=== PATIENT | male | born 1970 | race Native Hawaiian/Other Pacific Islander ===

== ENCOUNTER 2016-11-10 18:02 | Inpatient (IN) | payer OTHER ==
[~2016-11-10] VITALS: Ht 175.3 cm; Wt 90.0 kg
[~2016-11-10 18:02] MED LIST: BENA20TA2 PO; BENAZEPRIL20 MG PO; D35000 UNIT OR; DEXL60CA4 PO; DILTIAZEM240 M1 PO; DIPHEN25 MG PO; DIPHENHYDRAM25 MG PO; ENTERIC COATED325 MG PO; FISH OIL1 C10 PO; GEMF600T17 PO; GEMFIBROZIL PO; GLIP10TA55 PO; GLIP10TA66 PO; HAIR/SKIN/NAILS1 TAB PO; HUMALOG MI75 MG/25 K SC; HUMULIN 70/30 K1 INJ SC; HUMULIN 70/30 SC; INSU100I2 SC; LABETALOL200 MG PO; LABETALOL300 MG PO; METO50TA27 PO; METOPROLOL50 MG PO; MONTELUKAST SOD10 MG PO; NEURONTIN 100M100 MG PO; NIACIN ER1000 MG PO; NIASPAN750 MG PO; NIFE30TA PO; NITRO-DUR0.4 MG/HR TD; NITROSTAT0.3 MG SL; OMEPRAZOLE20 M1 PO; PIOG30TA PO; SINGULAIR10 MG PO; TAMS0.4C PO; TIZA4TAB5 PO; TRAM50TA PO; WELCHOL625 MG PO
[2016-11-10 20:00] VITALS: BP 168/101; TEMP 97.6
[2016-11-10 20:46] LABS: PLATELET COUNT 402 K/uL (142-355)
[2016-11-10 21:04] LABS: POTASSIUM 3.7 mmol/L (3.6-5.2)
[2016-11-10 21:20] VITALS: BP 190/99; TEMP 98.6; Ht 175.3 cm; Wt 90.0 kg
[2016-11-11] VITALS: BP 163/101; TEMP 99.1
[2016-11-11 02:30] VITALS: BP 100/56; TEMP 99
[2016-11-11 08:23] VITALS: BP 127/69; TEMP 97.6
[2016-11-11 12:00] VITALS: BP 107/63; TEMP 97.7
[2016-11-11 13:56] LABS: PLATELET COUNT 328 K/uL (142-355)
[2016-11-11 14:03] LABS: POTASSIUM 3.9 mmol/L (3.6-5.2)
[2016-11-11 16:00] VITALS: BP 102/66; TEMP 98.2
[2016-11-11 21:23] VITALS: BP 96/56; TEMP 97.9
[2016-11-12 00:11] VITALS: BP 108/55; TEMP 97.8
[2016-11-12 04:00] VITALS: BP 105/60; TEMP 97.9
[2016-11-12 05:27] LABS: PLATELET COUNT 296 K/uL (142-355)
[2016-11-12 05:53] LABS: POTASSIUM 3.4 mmol/L (3.6-5.2)
[2016-11-12 08:09] VITALS: BP 145/84; TEMP 97.8
[2016-11-12 12:03] VITALS: BP 111/62; TEMP 97.6
[2016-11-12 16:00] VITALS: BP 119/72; TEMP 97.8
== END 2016-11-12 18:40 | disposition home or self-care (01) | DRG 153 ==
LOC: MED/SURG 18:02
PROVIDERS: ADMIT Family Medicine
DX: J11.1 Influenza due to unidentified influenza virus with other respiratory manifestations (principal); J44.1 Chronic obstructive pulmonary disease with (acute) exacerbation; E86.0 Dehydration; E11.9 Type 2 diabetes mellitus without complications; I10 Essential (primary) hypertension; R00.0 Tachycardia, unspecified
CPT/HCPCS: 36415; 80053; 82948; 83735; 85027; 87040; 93005; 94640; 94664; 94760; 96360; 96361; 96367; 96372; 96374; J1815; J1885

== ENCOUNTER 2016-11-25 15:36 | Outpatient (CLI) | payer OTHER ==
[~2016-11-25] VITALS: Ht 175.3 cm; Wt 88.5 kg
[2016-11-25 15:45] VITALS: BP 133/78; TEMP 97.8
[2016-11-25 17:17] VITALS: BP 145/81; TEMP 97.8
== END 2016-11-25 19:36 | disposition home or self-care (01) ==
LOC: INF 15:36
DX: E86.0 Dehydration (principal)
CPT/HCPCS: 96360

== ENCOUNTER 2016-12-30 14:24 | Outpatient (CLI) | payer OTHER | END 2016-12-30 19:20 | disposition home or self-care (01) | LOC: RAD 14:24 | DX: M25.461 Effusion, right knee (principal) ==

== ENCOUNTER 2017-01-08 10:47 | Outpatient (CLI) | payer OTHER ==
[2017-01-08 11:21] LABS: PLATELET COUNT 264 K/uL (142-355)
[2017-01-08 11:52] LABS: POTASSIUM 3.7 mmol/L (3.6-5.2)
== END 2017-01-08 19:48 | disposition home or self-care (01) ==
LOC: LABW 10:47
PROVIDERS: Internal Medicine Nephrology
DX: N18.3 Chronic kidney disease, stage 3 (moderate) (principal); N25.81 Secondary hyperparathyroidism of renal origin; D63.1 Anemia in chronic kidney disease; R79.89 Other specified abnormal findings of blood chemistry; E78.00 Pure hypercholesterolemia, unspecified
CPT/HCPCS: 36415; 80053; 80061; 81000; 82306; 82570; 82607; 82728; 82747; 83540; 83550; 83970; 84100; 84155; 84436; 84443; 85027

== ENCOUNTER 2017-02-03 17:22 | Outpatient (CLI) | payer OTHER ==
[2017-02-03 18:22] LABS: PLATELET COUNT 321 K/uL (142-355)
[2017-02-03 18:32] LABS: POTASSIUM 3.9 mmol/L (3.6-5.2)
== END 2017-02-03 19:21 | disposition home or self-care (01) ==
LOC: INF 17:22
PROVIDERS: Family Medicine
DX: R10.84 Generalized abdominal pain (principal)
CPT/HCPCS: 80053; 85027; 96360; 96361; Q9963

== ENCOUNTER 2017-03-16 07:45 | Day surgery (SDC) | payer OTHER ==
[2017-03-09 09:20] LABS: PLATELET COUNT 278 K/uL (142-355)
[2017-03-09 10:20] LABS: POTASSIUM 3.8 mmol/L (3.6-5.2)
== END 2017-03-16 10:56 | disposition home or self-care (01) ==
LOC: OR 07:45
PROVIDERS: Student in an Organized Health Care Education/Training Program
PROC: 0DBH8ZZ Excision of Cecum, Via Natural or Artificial Opening Endoscopic (ICD-10-PCS; principal; 2017-03-16)
PROC: 0DBL8ZZ Excision of Transverse Colon, Via Natural or Artificial Opening Endoscopic (ICD-10-PCS; 2017-03-16)
DX: D12.0 Benign neoplasm of cecum (principal); D12.3 Benign neoplasm of transverse colon; K62.5 Hemorrhage of anus and rectum; K62.89 Other specified diseases of anus and rectum; Z12.11 Encounter for screening for malignant neoplasm of colon; K59.09 Other constipation; Z86.010 Personal history of colon polyps
CPT/HCPCS: 36415; 80053; 85027; 85610; J2001; J2704

== ENCOUNTER 2017-03-29 14:43 | Observation (INO) | payer OTHER ==
[~2017-03-29] VITALS: Ht 175.3 cm; Wt 86.2 kg
[2017-03-29 15:56] LABS: PLATELET COUNT 305 K/uL (142-355)
[2017-03-29 16:02] LABS: POTASSIUM 3.5 mmol/L (3.6-5.2)
[2017-03-29 16:53] VITALS: BP 154/89; TEMP 98.6; Ht 175.3 cm; Wt 86.2 kg
[2017-03-29] MEDS ORDERED: FE TABS325 MG PO (18:05)
[2017-03-29] MEDS ORDERED: LIPITOR10 MG PO (18:05)
[2017-03-29] MEDS ORDERED: ALLO100T22 PO (18:06)
[2017-03-29] MEDS ORDERED: BYSTOLIC5 MG PO (18:06)
[2017-03-29] MEDS ORDERED: ALTACE5 MG PO (18:06)
[2017-03-29 20:00] VITALS: BP 161/86; TEMP 98.5
[2017-03-30] VITALS: BP 164/88; TEMP 97.6
[2017-03-30 04:00] VITALS: BP 117/91; TEMP 98.6
[2017-03-30 08:00] VITALS: BP 176/94; TEMP 97.6
[2017-03-30 08:51] LABS: PLATELET COUNT 314 K/uL (142-355)
[2017-03-30 09:10] LABS: POTASSIUM 3.5 mmol/L (3.6-5.2)
[2017-03-30 12:00] VITALS: BP 189/97; TEMP 98
[2017-03-30 16:00] VITALS: BP 186/92; TEMP 97.8
--- NOTE | 2017-03-30 19:00 | NUR ---
IV CATH REMOVED
--- NOTE | 2017-03-30 19:15 | NUR ---
DISHCARGE INSTRUCTIONS GIVEN TO MOTHER
--- NOTE | 2017-03-30 19:17 | NUR ---
FAMILY WAS TOLD THAT THERE WAS A TORNADO WARNING IN EFFECT, DAD SAID THAT THEY WERE GOING TO [facility]ANVE ANYWAY
== END 2017-03-30 19:19 | disposition home or self-care (01) ==
LOC: MED/SURG 14:43
PROVIDERS: ADMIT Family Medicine
DX: K85.90 Acute pancreatitis without necrosis or infection, unspecified (principal); R10.84 Generalized abdominal pain; E86.0 Dehydration; I10 Essential (primary) hypertension; E13.42 Other specified diabetes mellitus with diabetic polyneuropathy; R11.10 Vomiting, unspecified
CPT/HCPCS: 80053; 81000; 82150; 82948; 83605; 83690; 83735; 85027; 96360; 96366; 96367; 96374; 96375; 99220; G0378; G0379; J2405

== ENCOUNTER 2017-07-30 12:27 | Outpatient (CLI) | payer OTHER ==
[~2017-07-30 12:27] MED LIST changes: +ALLO100T22 PO; +ALTACE5 MG PO; +BYSTOLIC5 MG PO; +FE TABS325 MG PO; +LEVEMIR FL100 UNIT/M SC; +LIPITOR10 MG PO
== END 2017-07-30 19:17 | disposition home or self-care (01) ==
LOC: INF 12:27
DX: E86.0 Dehydration (principal)
CPT/HCPCS: 96360; 96361

== ENCOUNTER 2017-08-12 16:55 | Outpatient (CLI) | payer OTHER | END 2017-08-12 19:28 | disposition home or self-care (01) | LOC: INF 16:55 | DX: E86.0 Dehydration (principal) | CPT/HCPCS: 96360; 96361 ==

== ENCOUNTER 2017-08-24 20:20 | Observation (INO) | payer OTHER ==
[~2017-08-24] VITALS: Ht 175.3 cm; Wt 90.0 kg
[2017-08-24] VITALS (7 sets, daily range): BP systolic 166–189; BP diastolic 86–102; TEMP 98.4–98.6; Ht 175.3 cm; Wt 90.0 kg
[2017-08-24 21:34] LABS: PLATELET COUNT 212 K/uL (142-355)
[2017-08-24 21:54] LABS: POTASSIUM 4.2 mmol/L (3.6-5.2)
[2017-08-24 22:34] LABS: PARTIAL THROMBOPLASTIN TIME 23.2 SECONDS (24.5-33.6)
[2017-08-25] VITALS (18 sets, daily range): BP systolic 135–175; BP diastolic 71–107; TEMP 97.8–99
[2017-08-25] MEDS ORDERED: CALCITRIOL0.25 MCG OR (01:39)
[2017-08-25] MEDS ORDERED: NIACIN ER1000 MG PO (01:41)
[2017-08-25] MEDS ORDERED: GABA300C2 PO (01:42)
[2017-08-25] MEDS ORDERED: GLIP10TA55 PO (01:43)
[2017-08-25] MEDS ORDERED: METOCLOPRAM5 MG OR (01:43)
[2017-08-25] MEDS ORDERED: NITROSTAT0.4 MG SL (01:45)
[2017-08-25] MEDS ORDERED: HUMULIN 70/30 K1 INJ SC (01:46)
[2017-08-25] MEDS ORDERED: INSUINJP SC (01:48)
[2017-08-25 05:32] LABS: PLATELET COUNT 213 K/uL (142-355)
[2017-08-25 05:43] LABS: POTASSIUM 3.5 mmol/L (3.6-5.2)
[2017-08-26] VITALS: BP 150/85; TEMP 97.9
[2017-08-26 04:00] VITALS: BP 123/66; TEMP 98.3
[2017-08-26 05:23] LABS: PLATELET COUNT 203 K/uL (142-355)
[2017-08-26 05:24] LABS: POTASSIUM 3.7 mmol/L (3.6-5.2)
[2017-08-26 08:00] VITALS: BP 131/71; TEMP 98
[2017-08-26 12:00] VITALS: BP 138/78; TEMP 97.7
== END 2017-08-26 14:25 | disposition home or self-care (01) ==
LOC: ICU 20:20 → MED/SURG 08-25 17:45
PROVIDERS: ADMIT Family Medicine
DX: R07.89 Other chest pain (principal); I10 Essential (primary) hypertension; E11.9 Type 2 diabetes mellitus without complications; E86.0 Dehydration; R10.84 Generalized abdominal pain
CPT/HCPCS: 36415; 80053; 82150; 82550; 82948; 83690; 83735; 84484; 85027; 85610; 85730; 87040; 93005; 94760; 96365; 96366; 96372; 99220; G0378; G0379; J1650; J1815; J3475

== ENCOUNTER 2017-11-15 10:03 | Outpatient (CLI) | payer OTHER ==
[~2017-11-15 10:03] MED LIST changes: +CALCITRIOL0.25 MCG OR; +GABA300C2 PO; +INSUINJP SC; +METOCLOPRAM5 MG OR; +NITROSTAT0.4 MG SL
[2017-11-15 10:32] LABS: PLATELET COUNT 272 K/uL (142-355)
[2017-11-15 11:02] LABS: POTASSIUM 4.3 mmol/L (3.6-5.2)
== END 2017-11-15 20:28 | disposition home or self-care (01) ==
LOC: LABW 10:03
PROVIDERS: Internal Medicine Hematology & Oncology
DX: D47.2 Monoclonal gammopathy (principal); R79.89 Other specified abnormal findings of blood chemistry; D64.89 Other specified anemias
CPT/HCPCS: 36415; 80053; 82728; 82784; 83883; 84165; 85027

== ENCOUNTER 2018-01-12 10:19 | Outpatient (CLI) | payer OTHER ==
[2018-01-12 10:42] LABS: PLATELET COUNT 372 K/uL (142-355)
[2018-01-12 11:40] LABS: POTASSIUM 4.2 mmol/L (3.6-5.2)
== END 2018-01-12 21:47 | disposition home or self-care (01) ==
LOC: LABW 10:19
PROVIDERS: Internal Medicine Nephrology
DX: N18.3 Chronic kidney disease, stage 3 (moderate) (principal); N25.81 Secondary hyperparathyroidism of renal origin; D63.1 Anemia in chronic kidney disease; E78.00 Pure hypercholesterolemia, unspecified
CPT/HCPCS: 36415; 80053; 80061; 81000; 82306; 82570; 82607; 82728; 82747; 83540; 83970; 84100; 84155; 84436; 84443; 85027

== ENCOUNTER 2018-03-11 10:25 | Outpatient (CLI) | payer OTHER ==
[2018-03-11 11:23] LABS: POTASSIUM 4.4 mmol/L (3.6-5.2)
== END 2018-03-11 22:14 | disposition home or self-care (01) ==
LOC: LABW 10:25
PROVIDERS: Internal Medicine Endocrinology, Diabetes & Metabolism
DX: E11.9 Type 2 diabetes mellitus without complications (principal); I10 Essential (primary) hypertension; E78.00 Pure hypercholesterolemia, unspecified
CPT/HCPCS: 36415; 80053; 80061; 82043; 82570; 84439; 84443; 84681

== ENCOUNTER 2018-05-09 10:26 | Outpatient (CLI) | payer OTHER ==
[~2018-05-09 10:26] MED LIST changes: +COATED ASPIRIN325 MG PO; +DIPH25CA90 PO; +WELCHOL625 MG OR
[2018-05-09 12:30] LABS: PLATELET COUNT 327 K/uL (142-355)
[2018-05-09 12:56] LABS: POTASSIUM 4.3 mmol/L (3.6-5.2)
== END 2018-05-09 19:45 | disposition home or self-care (01) ==
LOC: LABW 10:26
PROVIDERS: Internal Medicine Nephrology
DX: N18.3 Chronic kidney disease, stage 3 (moderate) (principal); D63.1 Anemia in chronic kidney disease; N25.81 Secondary hyperparathyroidism of renal origin; E11.9 Type 2 diabetes mellitus without complications
CPT/HCPCS: 36415; 80053; 80061; 81000; 82306; 82570; 82607; 82728; 82747; 83540; 83970; 84100; 84155; 84436; 84443; 85027

== ENCOUNTER 2018-07-19 10:22 | Outpatient (CLI) | payer OTHER ==
[2018-07-19 11:00] LABS: PLATELET COUNT 238 K/uL (142-355)
[2018-07-19 11:57] LABS: POTASSIUM 4.2 mmol/L (3.6-5.2)
== END 2018-07-19 22:22 | disposition home or self-care (01) ==
LOC: LABW 10:22
PROVIDERS: Internal Medicine Medical Oncology
DX: D64.9 Anemia, unspecified (principal); D47.2 Monoclonal gammopathy
CPT/HCPCS: 36415; 80053; 82607; 82728; 82746; 82784; 83540; 83550; 83883; 85027

== ENCOUNTER 2018-08-04 14:07 | Outpatient (CLI) | payer OTHER | END 2018-08-04 20:57 | disposition home or self-care (01) | LOC: RAD 14:07 | DX: K59.00 Constipation, unspecified (principal) ==

== ENCOUNTER 2018-08-22 14:22 | Observation (INO) | payer OTHER ==
[~2018-08-22] VITALS: Ht 175.3 cm; Wt 84.0 kg
[2018-08-22 15:57] VITALS: BP 145/85; TEMP 98.2; Ht 175.3 cm; Wt 84.0 kg
[2018-08-22 16:48] LABS: PLATELET COUNT 309 K/uL (142-355)
[2018-08-22] MEDS ORDERED: ULORIC40 MG PO (16:52)
[2018-08-22] MEDS ORDERED: ALTACE5 MG PO (16:53)
[2018-08-22 17:01] LABS: POTASSIUM 4.8 mmol/L (3.6-5.2); SODIUM 136 mmol/L (136-145)
[2018-08-22 20:29] VITALS: BP 148/92; TEMP 98
[2018-08-23] VITALS: BP 170/98; TEMP 97.9
[2018-08-23 04:15] VITALS: BP 176/98; TEMP 98.2
[2018-08-23 08:00] VITALS: BP 174/102; TEMP 97.8
[2018-08-23 10:31] LABS: POTASSIUM 4.3 mmol/L (3.6-5.2); SODIUM 135 mmol/L (136-145)
[2018-08-23 12:00] VITALS: BP 171/98; TEMP 98.1
[2018-08-23] MEDS ORDERED: AMLODIPINE BESYLATE PO (15:24)
[2018-08-23 16:23] VITALS: BP 123/84; TEMP 98
== END 2018-08-23 16:41 | disposition home or self-care (01) ==
LOC: MED/SURG 14:22
PROVIDERS: ADMIT Family Medicine
DX: I16.0 Hypertensive urgency (principal); I12.9 Hypertensive chronic kidney disease with stage 1 through stage 4 chronic kidney disease, or unspecified chronic kidney disease; E11.22 Type 2 diabetes mellitus with diabetic chronic kidney disease; N18.4 Chronic kidney disease, stage 4 (severe); Z79.4 Long term (current) use of insulin
CPT/HCPCS: 36600; 80048; 80053; 81000; 82550; 82805; 82948; 83735; 84484; 85027; 87040; 87077; 87185; 87186; 87205; 93005; 96365; 96366; 99220; G0378; G0379; J1815

== ENCOUNTER 2018-09-13 09:28 | Outpatient (CLI) | payer OTHER ==
[~2018-09-13 09:28] MED LIST changes: +AMLODIPINE BESYLATE PO; +ULORIC40 MG PO
[2018-09-13 09:59] LABS: PLATELET COUNT 241 K/uL (142-355)
[2018-09-13 10:23] LABS: POTASSIUM 4.3 mmol/L (3.6-5.2)
== END 2018-09-13 22:15 | disposition home or self-care (01) ==
LOC: LABW 09:28
PROVIDERS: Internal Medicine Nephrology
DX: N18.3 Chronic kidney disease, stage 3 (moderate) (principal); N25.81 Secondary hyperparathyroidism of renal origin; D63.1 Anemia in chronic kidney disease; Z79.899 Other long term (current) drug therapy
CPT/HCPCS: 36415; 80053; 80061; 81000; 82570; 82607; 82652; 82728; 82747; 83540; 83550; 83970; 84100; 84155; 84436; 84443; 85027

== ENCOUNTER 2018-10-07 14:43 | Observation (INO) | payer OTHER ==
[~2018-10-07] VITALS: Ht 175.3 cm; Wt 90.0 kg
[2018-10-07 18:15] LABS: PLATELET COUNT 322 K/uL (142-355)
[2018-10-07 18:21] VITALS: BP 180/100; TEMP 98.3; Ht 175.3 cm; Wt 90.0 kg
[2018-10-07 18:27] LABS: POTASSIUM 4.7 mmol/L (3.6-5.2); SODIUM 134 mmol/L (136-145)
[2018-10-07 18:41] LABS: PARTIAL THROMBOPLASTIN TIME 25.7 SECONDS (24.5-33.6)
[2018-10-07 20:00] VITALS: BP 173/103; TEMP 97.7
[2018-10-08] VITALS: BP 169/96; TEMP 98.2
[2018-10-08 04:00] VITALS: BP 165/91; TEMP 98.4
[2018-10-08 08:05] VITALS: BP 180/106; TEMP 98.4
[2018-10-08 12:06] VITALS: BP 177/98; TEMP 98.7
[2018-10-08 16:00] VITALS: BP 184/98; TEMP 98.9
[2018-10-08 20:00] VITALS: BP 162/90; TEMP 98.6
[2018-10-09] VITALS: BP 154/87; TEMP 98.9
[2018-10-09 04:00] VITALS: BP 145/80; TEMP 98.9
[2018-10-09 06:55] LABS: PLATELET COUNT 251 K/uL (142-355)
[2018-10-09 07:13] LABS: POTASSIUM 3.8 mmol/L (3.6-5.2)
[2018-10-09 08:04] VITALS: BP 152/77; TEMP 97.6
[2018-10-09 12:03] VITALS: BP 148/74; TEMP 98.2
[2018-10-09 16:03] VITALS: BP 117/67; TEMP 98.4
== END 2018-10-09 18:35 | disposition home or self-care (01) ==
LOC: MED/SURG 14:43
PROVIDERS: ADMIT Family Medicine
DX: E13.65 Other specified diabetes mellitus with hyperglycemia (principal); E86.0 Dehydration; R05 Cough; Z23 Encounter for immunization; R00.0 Tachycardia, unspecified; R55 Syncope and collapse
CPT/HCPCS: 36415; 80053; 82550; 82948; 83735; 83880; 84100; 84484; 85027; 85610; 85730; 93005; 96365; 96366; 96372; 99220; G0378; G0379; J1650; J1815

== ENCOUNTER 2018-11-10 10:00 | Outpatient (CLI) | payer OTHER ==
[2018-11-10 10:34] LABS: PLATELET COUNT 331 K/uL (142-355)
[2018-11-10 11:10] LABS: POTASSIUM 4.9 mmol/L (3.6-5.2)
== END 2018-11-10 22:31 | disposition home or self-care (01) ==
LOC: LABW 10:00
PROVIDERS: Internal Medicine Nephrology
DX: N18.3 Chronic kidney disease, stage 3 (moderate) (principal); N25.81 Secondary hyperparathyroidism of renal origin; D63.1 Anemia in chronic kidney disease; R94.6 Abnormal results of thyroid function studies
CPT/HCPCS: 36415; 80053; 80061; 81000; 82570; 82607; 82652; 82728; 82747; 83540; 83550; 83970; 84100; 84155; 84436; 84443; 85027

== ENCOUNTER 2018-11-18 14:20 | Outpatient (CLI) | payer OTHER | END 2018-11-18 19:17 | disposition home or self-care (01) | LOC: INF 14:20 | DX: E86.0 Dehydration (principal) | CPT/HCPCS: 96360; 96361 ==

== ENCOUNTER 2019-01-16 09:56 | Outpatient (CLI) | payer OTHER ==
[2019-01-16 10:43] LABS: POTASSIUM 4.6 mmol/L (3.6-5.2)
[2019-01-16 10:47] LABS: PLATELET COUNT 308 K/uL (142-355)
== END 2019-01-16 19:46 | disposition home or self-care (01) ==
LOC: LABW 09:56
PROVIDERS: Nurse Practitioner Family
DX: D64.9 Anemia, unspecified (principal); D47.2 Monoclonal gammopathy
CPT/HCPCS: 36415; 80053; 82728; 82784; 83540; 83550; 83883; 84165; 85027

== ENCOUNTER 2019-02-07 11:05 | Outpatient (CLI) | payer OTHER ==
[2019-02-07 11:28] LABS: PLATELET COUNT 250 K/uL (142-355)
[2019-02-07 13:09] LABS: POTASSIUM 4.9 mmol/L (3.6-5.2)
== END 2019-02-07 21:07 | disposition home or self-care (01) ==
LOC: LABW 11:05
PROVIDERS: Internal Medicine Nephrology
DX: N18.9 Chronic kidney disease, unspecified (principal); D63.1 Anemia in chronic kidney disease; I10 Essential (primary) hypertension; E11.9 Type 2 diabetes mellitus without complications; R94.6 Abnormal results of thyroid function studies; K85.90 Acute pancreatitis without necrosis or infection, unspecified; K21.9 Gastro-esophageal reflux disease without esophagitis; M10.9 Gout, unspecified
CPT/HCPCS: 36415; 80053; 82306; 82607; 82728; 82746; 83540; 83550; 83970; 84100; 85027

== ENCOUNTER 2019-04-12 11:47 | Outpatient (CLI) | payer OTHER ==
[2019-04-12 12:16] LABS: PLATELET COUNT 228 K/uL (142-355)
[2019-04-12 12:45] LABS: POTASSIUM 5.1 mmol/L (3.6-5.2)
== END 2019-04-12 23:34 | disposition home or self-care (01) ==
LOC: LABW 11:47
PROVIDERS: Internal Medicine Nephrology
DX: E11.9 Type 2 diabetes mellitus without complications (principal); D63.1 Anemia in chronic kidney disease; I10 Essential (primary) hypertension; R94.6 Abnormal results of thyroid function studies; K21.9 Gastro-esophageal reflux disease without esophagitis; M10.9 Gout, unspecified; K85.80 Other acute pancreatitis without necrosis or infection
CPT/HCPCS: 36415; 80053; 82306; 82570; 82607; 82728; 82746; 83540; 83550; 83970; 84100; 84155; 85027

== ENCOUNTER 2019-05-01 10:04 | Outpatient (CLI) | payer OTHER ==
[2019-05-01 10:39] LABS: PLATELET COUNT 321 K/uL (142-355)
[2019-05-01 11:00] LABS: POTASSIUM 4.5 mmol/L (3.6-5.2)
== END 2019-05-01 23:22 | disposition home or self-care (01) ==
LOC: LABW 10:04
PROVIDERS: Internal Medicine Nephrology
DX: I12.9 Hypertensive chronic kidney disease with stage 1 through stage 4 chronic kidney disease, or unspecified chronic kidney disease (principal); N18.3 Chronic kidney disease, stage 3 (moderate); D63.1 Anemia in chronic kidney disease; E11.9 Type 2 diabetes mellitus without complications; R94.6 Abnormal results of thyroid function studies; K85.80 Other acute pancreatitis without necrosis or infection; K21.9 Gastro-esophageal reflux disease without esophagitis; M10.9 Gout, unspecified
CPT/HCPCS: 36415; 80053; 84100; 84439; 84443; 85027

== ENCOUNTER 2019-05-08 00:59 | Outpatient (CLI) | payer OTHER ==
[2019-05-08] MEDS ORDERED: VITAMIN D50000 UNIT PO (02:10)
[2019-05-08] MEDS ORDERED: METO50TA27 PO (02:10)
[2019-05-08] MEDS ORDERED: FERROUS SULF325 M1 PO (02:13)
[2019-05-08] MEDS ORDERED: LEVO0.0529 PO (02:13)
[2019-05-08] MEDS ORDERED: FOLIC ACI1 PO (02:14)
== END 2019-05-08 01:03 | disposition short-term general hospital (02) ==
LOC: AMB 00:59
DX: R25.8 Other abnormal involuntary movements (principal); M79.605 Pain in left leg; M79.604 Pain in right leg; R69 Illness, unspecified
CPT/HCPCS: A0425; A0427

== ENCOUNTER 2019-05-08 01:08 | Emergency (ER) | payer OTHER ==
[~2019-05-08] VITALS: Ht 175.3 cm; Wt 93.0 kg
[2019-05-08] MEDS ORDERED: VITAMIN D50000 UNIT PO (02:10)
[2019-05-08] MEDS ORDERED: METO50TA27 PO (02:10)
[2019-05-08 02:12] LABS: PLATELET COUNT 324 K/uL (142-355)
[2019-05-08] MEDS ORDERED: LEVO0.0529 PO (02:13)
[2019-05-08] MEDS ORDERED: FERROUS SULF325 M1 PO (02:13)
[2019-05-08] MEDS ORDERED: FOLIC ACI1 PO (02:14)
[2019-05-08 02:34] LABS: POTASSIUM 5.3 mmol/L (3.6-5.2)
[2019-05-08 04:40] LABS: PARTIAL THROMBOPLASTIN TIME 23.6 SECONDS (24.5-33.6)
[2019-05-08 05:27] VITALS: BP 174/81; TEMP 98
== END 2019-05-08 05:32 | disposition short-term general hospital (02) ==
LOC: ED 01:08
PROVIDERS: Family Medicine
DX: N28.9 Disorder of kidney and ureter, unspecified (principal); R79.89 Other specified abnormal findings of blood chemistry; R00.0 Tachycardia, unspecified
CPT/HCPCS: 36415; 80053; 81000; 85027; 85379; 85610; 85730; 93005; 99284

== ENCOUNTER 2019-05-08 05:30 | Outpatient (CLI) | payer OTHER ==
[~2019-05-08 05:30] MED LIST changes: +FERROUS SULF325 M1 PO; +FOLIC ACI1 PO; +LEVO0.0529 PO; +VITAMIN D50000 UNIT PO
== END 2019-05-08 06:50 | disposition short-term general hospital (02) ==
LOC: AMB 05:30
DX: N28.9 Disorder of kidney and ureter, unspecified (principal); R79.89 Other specified abnormal findings of blood chemistry; R00.0 Tachycardia, unspecified
CPT/HCPCS: A0425; A0429

== ENCOUNTER 2019-05-17 10:24 | Outpatient (CLI) | payer OTHER ==
[2019-05-17 11:01] LABS: PLATELET COUNT 290 K/uL (142-355)
[2019-05-17 11:09] LABS: POTASSIUM 4.5 mmol/L (3.6-5.2)
== END 2019-05-17 23:09 | disposition home or self-care (01) ==
LOC: LABW 10:24
PROVIDERS: Internal Medicine Nephrology
DX: I12.9 Hypertensive chronic kidney disease with stage 1 through stage 4 chronic kidney disease, or unspecified chronic kidney disease (principal); N18.3 Chronic kidney disease, stage 3 (moderate); E11.9 Type 2 diabetes mellitus without complications; D63.1 Anemia in chronic kidney disease; R94.6 Abnormal results of thyroid function studies; K85.80 Other acute pancreatitis without necrosis or infection; K21.9 Gastro-esophageal reflux disease without esophagitis; M10.9 Gout, unspecified
CPT/HCPCS: 36415; 80053; 84100; 85027; 87340

== ENCOUNTER 2019-06-05 10:11 | Outpatient (CLI) | payer OTHER ==
[2019-06-05 10:42] LABS: PLATELET COUNT 233 K/uL (142-355)
[2019-06-05 10:51] LABS: POTASSIUM 4.1 mmol/L (3.6-5.2)
== END 2019-06-06 05:48 | disposition home or self-care (01) ==
LOC: LABW 10:11
PROVIDERS: Internal Medicine Nephrology
DX: I12.9 Hypertensive chronic kidney disease with stage 1 through stage 4 chronic kidney disease, or unspecified chronic kidney disease (principal); N18.3 Chronic kidney disease, stage 3 (moderate); D63.1 Anemia in chronic kidney disease; E11.9 Type 2 diabetes mellitus without complications; R94.6 Abnormal results of thyroid function studies; K85.90 Acute pancreatitis without necrosis or infection, unspecified; K21.9 Gastro-esophageal reflux disease without esophagitis; M10.9 Gout, unspecified
CPT/HCPCS: 36415; 80053; 82306; 83970; 84100; 85027

== ENCOUNTER 2019-06-30 10:30 | Outpatient (CLI) | payer OTHER ==
[2019-06-30 10:53] LABS: PLATELET COUNT 256 K/uL (142-355)
[2019-06-30 11:27] LABS: POTASSIUM 4.5 mmol/L (3.6-5.2)
== END 2019-06-30 21:01 | disposition home or self-care (01) ==
LOC: LABW 10:30
PROVIDERS: Internal Medicine Nephrology
DX: I12.9 Hypertensive chronic kidney disease with stage 1 through stage 4 chronic kidney disease, or unspecified chronic kidney disease (principal); D63.1 Anemia in chronic kidney disease; E11.9 Type 2 diabetes mellitus without complications; R94.6 Abnormal results of thyroid function studies; K85.80 Other acute pancreatitis without necrosis or infection; K21.9 Gastro-esophageal reflux disease without esophagitis; M10.9 Gout, unspecified; N18.9 Chronic kidney disease, unspecified
CPT/HCPCS: 36415; 80053; 81000; 82306; 82570; 82607; 82728; 82746; 83540; 83550; 83970; 84100; 84155; 85027

== ENCOUNTER 2019-07-10 10:21 | Outpatient (CLI) | payer OTHER ==
[2019-07-10 10:58] LABS: PLATELET COUNT 286 K/uL (142-355)
[2019-07-10 11:30] LABS: POTASSIUM 3.6 mmol/L (3.6-5.2)
== END 2019-07-10 21:52 | disposition home or self-care (01) ==
LOC: LABW 10:21
PROVIDERS: Internal Medicine Nephrology
DX: I12.9 Hypertensive chronic kidney disease with stage 1 through stage 4 chronic kidney disease, or unspecified chronic kidney disease (principal); N18.9 Chronic kidney disease, unspecified; D63.1 Anemia in chronic kidney disease; E11.9 Type 2 diabetes mellitus without complications; R94.6 Abnormal results of thyroid function studies; K85.80 Other acute pancreatitis without necrosis or infection; K21.9 Gastro-esophageal reflux disease without esophagitis; M10.9 Gout, unspecified
CPT/HCPCS: 36415; 80053; 84100; 85027

== ENCOUNTER 2019-07-26 10:21 | Outpatient (CLI) | payer OTHER ==
[2019-07-26 10:47] LABS: PLATELET COUNT 264 K/uL (142-355)
[2019-07-26 11:13] LABS: POTASSIUM 3.5 mmol/L (3.6-5.2)
== END 2019-07-26 20:09 | disposition home or self-care (01) ==
LOC: LABW 10:21
PROVIDERS: Internal Medicine Nephrology
DX: E11.9 Type 2 diabetes mellitus without complications (principal); D63.1 Anemia in chronic kidney disease; R94.6 Abnormal results of thyroid function studies; K85.90 Acute pancreatitis without necrosis or infection, unspecified; K21.9 Gastro-esophageal reflux disease without esophagitis; M10.9 Gout, unspecified; N18.5 Chronic kidney disease, stage 5; I12.0 Hypertensive chronic kidney disease with stage 5 chronic kidney disease or end stage renal disease
CPT/HCPCS: 80053; 84100; 85027

== ENCOUNTER 2019-08-03 11:14 | Outpatient (CLI) | payer OTHER ==
[~2019-08-03] VITALS: Ht 175.3 cm; Wt 90.7 kg
[2019-08-03 11:20] VITALS: BP 140/69; TEMP 98.1
== END 2019-08-03 12:20 | disposition home or self-care (01) ==
LOC: INF 11:14
DX: D50.9 Iron deficiency anemia, unspecified (principal); D63.1 Anemia in chronic kidney disease; I10 Essential (primary) hypertension; E11.9 Type 2 diabetes mellitus without complications; R94.6 Abnormal results of thyroid function studies; K85.90 Acute pancreatitis without necrosis or infection, unspecified; K21.9 Gastro-esophageal reflux disease without esophagitis; M10.9 Gout, unspecified
CPT/HCPCS: 96365; J1439

== ENCOUNTER 2019-08-08 14:45 | Outpatient (CLI) | payer OTHER ==
[2019-08-08 15:16] LABS: PLATELET COUNT 222 K/uL (142-355)
[2019-08-08 15:38] LABS: POTASSIUM 3.7 mmol/L (3.6-5.2)
== END 2019-08-08 23:31 | disposition home or self-care (01) ==
LOC: LABW 14:45
PROVIDERS: Internal Medicine Nephrology
DX: Z11.1 Encounter for screening for respiratory tuberculosis (principal); I12.0 Hypertensive chronic kidney disease with stage 5 chronic kidney disease or end stage renal disease; D63.1 Anemia in chronic kidney disease; E11.9 Type 2 diabetes mellitus without complications; R94.6 Abnormal results of thyroid function studies; K85.80 Other acute pancreatitis without necrosis or infection; K21.9 Gastro-esophageal reflux disease without esophagitis; M10.9 Gout, unspecified; N18.5 Chronic kidney disease, stage 5
CPT/HCPCS: 36415; 80053; 85027

== ENCOUNTER 2019-08-11 10:56 | Outpatient (CLI) | payer OTHER ==
[~2019-08-11] VITALS: Ht 175.3 cm; Wt 95.3 kg
[2019-08-11 11:14] VITALS: BP 149/67; TEMP 97.7
[2019-08-11 11:52] VITALS: BP 154/74; TEMP 97.8
[2019-08-11 12:57] LABS: POTASSIUM 4.2 mmol/L (3.6-5.2)
[2019-08-11 12:59] LABS: PLATELET COUNT 238 K/uL (142-355)
== END 2019-08-11 12:04 | disposition home or self-care (01) ==
LOC: INF 10:56
PROVIDERS: Family Medicine
DX: D64.89 Other specified anemias (principal); D63.1 Anemia in chronic kidney disease; I10 Essential (primary) hypertension; E11.9 Type 2 diabetes mellitus without complications; R94.6 Abnormal results of thyroid function studies; K85.90 Acute pancreatitis without necrosis or infection, unspecified; K21.9 Gastro-esophageal reflux disease without esophagitis; M10.9 Gout, unspecified
CPT/HCPCS: 36415; 80053; 82728; 83540; 83550; 83883; 84165; 85027; 96365; J1439

== ENCOUNTER 2019-08-16 10:29 | Outpatient (CLI) | payer OTHER | END 2019-08-16 22:58 | disposition home or self-care (01) | LOC: LABW 10:29 | DX: I12.0 Hypertensive chronic kidney disease with stage 5 chronic kidney disease or end stage renal disease (principal); D63.1 Anemia in chronic kidney disease; E11.9 Type 2 diabetes mellitus without complications; R94.6 Abnormal results of thyroid function studies; K85.80 Other acute pancreatitis without necrosis or infection; K21.9 Gastro-esophageal reflux disease without esophagitis; M10.9 Gout, unspecified; N18.5 Chronic kidney disease, stage 5; R53.82 Chronic fatigue, unspecified | CPT/HCPCS: 36415; 87340 ==

== ENCOUNTER 2019-09-06 11:49 | Outpatient (CLI) | payer OTHER | END 2019-09-06 19:52 | disposition home or self-care (01) | LOC: LABW 11:49 | PROVIDERS: Internal Medicine Endocrinology, Diabetes & Metabolism | DX: E11.9 Type 2 diabetes mellitus without complications (principal); E78.00 Pure hypercholesterolemia, unspecified; I10 Essential (primary) hypertension; E03.8 Other specified hypothyroidism | CPT/HCPCS: 36415; 80061; 84439; 84443 ==

== ENCOUNTER 2019-10-04 11:18 | Outpatient (CLI) | payer OTHER | END 2019-10-04 22:27 | disposition home or self-care (01) | LOC: RESP 11:18 | DX: Z01.818 Encounter for other preprocedural examination (principal); N18.6 End stage renal disease; I12.0 Hypertensive chronic kidney disease with stage 5 chronic kidney disease or end stage renal disease | CPT/HCPCS: 93306 ==

== ENCOUNTER 2019-10-10 09:25 | Outpatient (CLI) | payer OTHER | END 2019-10-10 20:17 | disposition home or self-care (01) | LOC: CT 09:25 | DX: I12.0 Hypertensive chronic kidney disease with stage 5 chronic kidney disease or end stage renal disease (principal); N18.6 End stage renal disease; D63.1 Anemia in chronic kidney disease; E11.9 Type 2 diabetes mellitus without complications; R94.6 Abnormal results of thyroid function studies; K85.90 Acute pancreatitis without necrosis or infection, unspecified; K21.9 Gastro-esophageal reflux disease without esophagitis; M10.9 Gout, unspecified; Z99.2 Dependence on renal dialysis | CPT/HCPCS: Q9963 ==

== ENCOUNTER 2019-10-16 17:32 | Outpatient (CLI) | payer OTHER ==
[2019-10-16 18:08] LABS: PLATELET COUNT 274 K/uL (142-355)
== END 2019-10-16 19:11 | disposition home or self-care (01) ==
LOC: LAB 17:32
PROVIDERS: Nurse Practitioner Family
DX: R10.11 Right upper quadrant pain (principal); R07.89 Other chest pain
CPT/HCPCS: 80053; 82150; 82550; 82553; 83690; 85027

== ENCOUNTER 2019-10-24 09:01 | Outpatient (CLI) | payer OTHER ==
[~2019-10-24] VITALS: Ht 175.3 cm; Wt 88.9 kg
== END 2019-10-24 20:07 | disposition home or self-care (01) ==
LOC: NM 09:01
DX: I25.10 Atherosclerotic heart disease of native coronary artery without angina pectoris (principal); R07.89 Other chest pain
CPT/HCPCS: A9500; J2785

== ENCOUNTER 2019-11-20 10:22 | Outpatient (CLI) | payer OTHER ==
[2019-11-20 11:06] LABS: POTASSIUM 3.9 mmol/L (3.6-5.2)
[2019-11-20 11:07] LABS: PLATELET COUNT 200 K/uL (142-355)
== END 2019-11-20 19:24 | disposition home or self-care (01) ==
LOC: LABW 10:22
PROVIDERS: Specialist
DX: R07.2 Precordial pain (principal); R93.1 Abnormal findings on diagnostic imaging of heart and coronary circulation
CPT/HCPCS: 36415; 80053; 85027

== ENCOUNTER 2019-12-06 07:55 | Day surgery (SDC) | payer OTHER ==
[2019-12-06 08:51] LABS: PLATELET COUNT 210 K/uL (142-355)
[2019-12-06 08:58] LABS: POTASSIUM 3.6 mmol/L (3.6-5.2)
== END 2019-12-06 10:52 | disposition home or self-care (01) ==
LOC: OR 07:55
PROVIDERS: Student in an Organized Health Care Education/Training Program
PROC: 0DJD8ZZ Inspection of Lower Intestinal Tract, Via Natural or Artificial Opening Endoscopic (ICD-10-PCS; principal; 2019-12-06)
DX: K63.5 Polyp of colon (principal); Z12.11 Encounter for screening for malignant neoplasm of colon; Z86.010 Personal history of colon polyps; Z79.02 Long term (current) use of antithrombotics/antiplatelets
CPT/HCPCS: G0105; 80053; 85027; 93005; J2001; J2250; J2405; J2704

== ENCOUNTER 2019-12-10 22:27 | Emergency (ER) | payer OTHER ==
[~2019-12-10] VITALS: Ht 175.3 cm; Wt 91.6 kg
[2019-12-10 23:18] LABS: PLATELET COUNT 202 K/uL (142-355)
[2019-12-10 23:29] LABS: POTASSIUM 4.2 mmol/L (3.6-5.2); SODIUM 138 mmol/L (136-145)
[2019-12-10 23:38] LABS: PARTIAL THROMBOPLASTIN TIME 23.4 SECONDS (24.5-33.6)
[2019-12-11 00:09] VITALS: BP 177/88; TEMP 98.3
== END 2019-12-11 00:09 | disposition home or self-care (01) ==
LOC: ED 22:27
PROVIDERS: Hospitalist
DX: E11.65 Type 2 diabetes mellitus with hyperglycemia (principal); Z79.4 Long term (current) use of insulin; I10 Essential (primary) hypertension; N18.9 Chronic kidney disease, unspecified
CPT/HCPCS: 36415; 80053; 81000; 81002; 82550; 83880; 84484; 85027; 85610; 85730; 93005; 96360; 96375; 99284; J1815

== ENCOUNTER 2020-04-08 16:36 | Outpatient (CLI) | payer OTHER ==
[2020-04-08 17:22] LABS: POTASSIUM 3.9 mmol/L (3.6-5.2)
== END 2020-04-08 19:57 | disposition home or self-care (01) ==
LOC: RAD 16:36
PROVIDERS: Nurse Practitioner Family
DX: K59.09 Other constipation (principal); E86.0 Dehydration; R10.84 Generalized abdominal pain
CPT/HCPCS: 36415; 80053; 82150; 83690

== ENCOUNTER → 2020-04-26 | Outpatient (CLI) | payer OTHER ==
[2020-04-26 09:59] LABS: PLATELET COUNT 187 K/uL (142-355)
[2020-04-26 10:01] LABS: POTASSIUM 3.8 mmol/L (3.6-5.2)
== END ==
LOC: LABW 08:58
PROVIDERS: Internal Medicine Medical Oncology
DX: D47.2 Monoclonal gammopathy (principal); D64.89 Other specified anemias; N18.3 Chronic kidney disease, stage 3 (moderate); D64.9 Anemia, unspecified
CPT/HCPCS: 36415; 80053; 82728; 82784; 83540; 83550; 85027

== ENCOUNTER 2020-05-06 10:02 | Outpatient (CLI) | payer OTHER | END 2020-05-06 21:08 | disposition home or self-care (01) | LOC: LABW 10:02 | DX: D47.2 Monoclonal gammopathy (principal); D64.89 Other specified anemias; N18.3 Chronic kidney disease, stage 3 (moderate) | CPT/HCPCS: 36415; 83883; 84165; 85044 ==

== ENCOUNTER 2020-05-09 22:41 | Emergency (ER) | payer OTHER ==
[~2020-05-09] VITALS: Ht 175.3 cm; Wt 91.6 kg
[2020-05-09 22:41] VITALS: TEMP 99.1
[2020-05-09 23:34] LABS: PLATELET COUNT 180 K/uL (142-355)
[2020-05-09 23:46] LABS: POTASSIUM 3.5 mmol/L (3.6-5.2); SODIUM 138 mmol/L (136-145)
[2020-05-10 02:19] VITALS: BP 236/91
== END 2020-05-10 02:19 | disposition short-term general hospital (02) ==
LOC: ED 22:41
DX: R07.89 Other chest pain (principal); N18.6 End stage renal disease; Z99.2 Dependence on renal dialysis
CPT/HCPCS: 80053; 81000; 82962; 83735; 84484; 85027; 93005; 96372; 99283; 99284; J1815

== ENCOUNTER 2020-05-30 07:42 | Day surgery (SDC) | payer OTHER ==
[2020-05-30 08:22] LABS: PLATELET COUNT 194 K/uL (142-355)
[2020-05-30 08:32] LABS: POTASSIUM 3.7 mmol/L (3.6-5.2)
== END 2020-05-30 10:42 | disposition home or self-care (01) ==
LOC: OR 07:42
PROVIDERS: Student in an Organized Health Care Education/Training Program
PROC: 0DBK8ZZ Excision of Ascending Colon, Via Natural or Artificial Opening Endoscopic (ICD-10-PCS; principal; 2020-05-30)
DX: D12.2 Benign neoplasm of ascending colon (principal); K64.8 Other hemorrhoids; Z86.010 Personal history of colon polyps
CPT/HCPCS: 80053; 85027; J0330

== ENCOUNTER 2020-06-12 15:25 | Outpatient (CLI) | payer OTHER | END 2020-06-12 19:48 | disposition home or self-care (01) | LOC: LAB 15:25 | DX: D64.89 Other specified anemias (principal) | CPT/HCPCS: 85018 ==

== ENCOUNTER 2020-09-12 10:20 | Outpatient (CLI) | payer OTHER | END 2020-09-12 20:21 | disposition home or self-care (01) | LOC: LABW 10:20 | DX: E11.65 Type 2 diabetes mellitus with hyperglycemia (principal); E03.8 Other specified hypothyroidism; I10 Essential (primary) hypertension; E78.00 Pure hypercholesterolemia, unspecified | CPT/HCPCS: 36415; 84439; 84443 ==

== ENCOUNTER 2020-11-18 09:45 | Outpatient (CLI) | payer OTHER ==
[~2020-11-18 09:45] MED LIST changes: +ASPIRIN/ENTERIC81 MG PO; +DICYCLOMINE HYD10 MG PO; +LIPITOR40 MG PO; +PANTOPRAZOLE 40MG TA PO; +PROSCAR5 MG PO
[2020-11-18 10:12] LABS: PLATELET COUNT 200 K/uL (142-355)
[2020-11-18 10:33] LABS: POTASSIUM 4.2 mmol/L (3.6-5.2)
== END 2020-11-18 20:28 | disposition home or self-care (01) ==
LOC: LABW 09:45
PROVIDERS: ATTEND Internal Medicine Medical Oncology
DX: D47.2 Monoclonal gammopathy (principal); D64.9 Anemia, unspecified; N18.30 Chronic kidney disease, stage 3 unspecified
CPT/HCPCS: 36415; 80053; 82728; 82784; 83540; 83550; 83883; 84165; 85027

== ENCOUNTER 2020-12-11 14:34 | Outpatient (CLI) | payer OTHER | END 2020-12-11 21:59 | disposition home or self-care (01) | LOC: LAB 14:34 | PROVIDERS: ATTEND Internal Medicine Nephrology | DX: D64.9 Anemia, unspecified (principal) | CPT/HCPCS: 85014; 85018 ==

== ENCOUNTER 2021-01-15 14:26 | Outpatient (CLI) | payer OTHER | END 2021-01-15 19:59 | disposition home or self-care (01) | LOC: RAD 14:26 | PROVIDERS: ATTEND Specialist | DX: R07.89 Other chest pain (principal); R06.09 Other forms of dyspnea ==

== ENCOUNTER 2021-02-11 10:41 | Outpatient (CLI) | payer OTHER ==
[2021-02-11 12:13] LABS: PLATELET COUNT 215 K/uL (142-355)
[2021-02-11 13:21] LABS: POTASSIUM 4.2 mmol/L (3.6-5.2)
== END 2021-02-11 19:14 | disposition home or self-care (01) ==
LOC: LABW 10:41
PROVIDERS: ATTEND Internal Medicine Medical Oncology
DX: D47.2 Monoclonal gammopathy (principal); D64.9 Anemia, unspecified; N18.30 Chronic kidney disease, stage 3 unspecified
CPT/HCPCS: 36415; 80053; 82728; 83540; 83550; 85027; 85044

== ENCOUNTER 2021-02-12 14:21 | Outpatient (CLI) | payer OTHER | END 2021-02-12 20:33 | disposition home or self-care (01) | LOC: LAB 14:21 | PROVIDERS: ATTEND Internal Medicine Nephrology | DX: D64.89 Other specified anemias (principal) | CPT/HCPCS: 85014; 85018 ==

== ENCOUNTER 2021-02-17 21:00 | Emergency (ER) | payer OTHER ==
[~2021-02-17] VITALS: Ht 175.3 cm; Wt 90.7 kg
[2021-02-17 22:50] LABS: PLATELET COUNT 220 K/uL (142-355)
[2021-02-17 23:12] LABS: POTASSIUM 5.6 mmol/L (3.6-5.2); SODIUM 127 mmol/L (136-145)
[2021-02-18] MEDS ORDERED: AMLODIPINE BESYLATE PO (01:15)
[2021-02-18] MEDS ORDERED: LABETALOL200 MG PO (01:19)
[2021-02-18] MEDS ORDERED: EUTHYROX50 MCG PO (01:20)
[2021-02-18] MEDS ORDERED: DIOVAN320 MG PO (01:20)
[2021-02-18] MEDS ORDERED: ISOS30TA17 PO (01:20)
[2021-02-18 04:30] VITALS: BP 174/76; TEMP 98.1
[2021-02-18 04:40] LABS: POTASSIUM 4.6 mmol/L (3.6-5.2)
== END 2021-02-18 04:30 | disposition short-term general hospital (02) ==
LOC: ED 21:00
PROVIDERS: Emergency Medicine Emergency Medical Services
DX: E11.65 Type 2 diabetes mellitus with hyperglycemia (principal); I10 Essential (primary) hypertension; Z03.818 Encounter for observation for suspected exposure to other biological agents ruled out
CPT/HCPCS: 36415; 36600; 80048; 80053; 81002; 82805; 84484; 85027; 87635; 93005; 96360; 96361; 96365; 96375; 96376; 99285; J0360; J1815; J3490; U0003

== ENCOUNTER 2021-02-28 14:54 | Outpatient (CLI) | payer OTHER ==
[~2021-02-28 14:54] MED LIST changes: +DIOVAN320 MG PO; +EUTHYROX50 MCG PO; +ISOS30TA17 PO
== END 2021-02-28 20:56 | disposition home or self-care (01) ==
LOC: LAB 14:54
PROVIDERS: ATTEND Internal Medicine Nephrology
DX: D64.89 Other specified anemias (principal)
CPT/HCPCS: 85014; 85018

== ENCOUNTER 2021-05-13 17:36 | Outpatient (CLI) | payer OTHER | END 2021-05-13 19:22 | disposition home or self-care (01) | LOC: RAD 17:36 | PROVIDERS: ATTEND Nurse Practitioner Family | DX: J20.8 Acute bronchitis due to other specified organisms (principal) ==

== ENCOUNTER 2021-06-10 17:12 | Observation (INO) | payer OTHER ==
[~2021-06-10] VITALS: Ht 175.3 cm; Wt 89.6 kg
--- NOTE | 2021-06-10 18:00 | NUR ---
REC'D PT FROM ADMISSIONS VIA WC. PT AWAKE AND ALERT. NO ACUTE DISTRESS NOTED. PT'S BS TABLE PLACED OVER PT AND PT AWARE OF TABLE, CALL LIGHT AND AND PHONE PLACMENT. COTTONBALL TAPED OVER CALL LIGHT FOR PT TO "FEEL AND CALL US FOR ASSISTANCE.".
--- NOTE | 2021-06-10 18:04 | NUR ---
SPOKE TO MICHAEL IN LAB TO NOTIFY OF PT ADMISSION TO FLOOR THAT THEY COULD COME AND DRAW PT'S BLOOD FOR TYPE AND CROSS AT THIS TIME. MICHAEL STATES "OK WELL PHLEBO IS IN THE ER RIGHT NOW"
[2021-06-10] MEDS ORDERED: GABA300C2 PO (18:27)
[2021-06-10] MEDS ORDERED: LABETALOL HYDR200 MG PO (18:27)
[2021-06-10] MEDS ORDERED: ANTIHISTAMIN25 MG PO (18:29)
[2021-06-10] MEDS ORDERED: KP FOLIC ACID1 MG PO (18:30)
--- NOTE | 2021-06-10 18:30 | NUR ---
PT ASKED IF HIS MOTHER COULD STAY WITH HIM BRENT AND EXPLAINED TO PT I WOULD HAVE TO CALL AND ASK DR LAMBERT. SO I CALLED DR LAMBERT AND ASKED ABOUT PT'S MOTHER STAYING AND DUE TO COVID SHE IS NOT ABLE TO STAY WITH HIML. I WENT TO ADMISSIONS AND SPOKE WITH PT'S MTOHER AND EXPLAINED SITUATION. ALSO EXPLAINED TO PT AND HE VERBALZIED UNDERSTAnding.
[2021-06-10] MEDS ORDERED: AMLODIPINE BESYLATE PO (18:31)
[2021-06-10] MEDS ORDERED: EUTHYROX50 MCG PO (18:33)
[2021-06-10] MEDS ORDERED: PANTOPRAZOLE 40MG TA PO (18:35)
[2021-06-10] MEDS ORDERED: FINASTERIDE5 MG PO (18:36)
[2021-06-10] MEDS ORDERED: TAMSULOSIN HYD0.4 MG PO (18:37)
[2021-06-10 18:38] LABS: PLATELET COUNT 193 K/uL (142-355)
[2021-06-10] MEDS ORDERED: ASPIRIN ADULT L81 M1 PO (18:38)
[2021-06-10] MEDS ORDERED: LIPITOR40 MG PO (18:39)
[2021-06-10] MEDS ORDERED: VALSARTAN320 MG PO (18:39)
--- NOTE | 2021-06-10 18:48 | NUR ---
DR LAMBERT INFOMRED OF PT'S HGB OF 8.6. NEW ORDERS REC'D TO TRANSFUSE ONLY 1 UNIT PRBCS. WILL INFOMR PT AND LAB.
[2021-06-10 19:02] LABS: POTASSIUM 4.1 mmol/L (3.6-5.2)
[2021-06-10 20:00] VITALS: BP 195/83; TEMP 97.1
--- NOTE | 2021-06-10 20:00 | NUR ---
PATIENT RESTING QUIETLY WATCHING TV, DENIES ANY COMPLAINTS AT THIS TIME. ASSESSMENT COMPLETED AND PATIENT TOLERATED WELL. DENIES ANY COMPLAINTS OR REQUESTS AT THIS TIME. CALL LIGHT WITHIN REACH AND WILL CONTINUE TO MONITOR. CALLED DR. LAMBERT TO REVIEW PATIENTS HOME MED LIST AND TO ASK ABOUT ORDERS FOR SLIDING SCALE INSULIN AND WAS UNABLE TO REACH HER, VOICE MAIL AND TEXT MESSAGE SENT.
--- NOTE | 2021-06-10 22:43 | NUR ---
CALL MADE TO DR. LAMBERT TO ASK AGAIN ABOUT SLIDING SCALE INSULIN FOR PATIENT AND HIS HOME MEDS, LEFT VOICEMAIL. WILL CONTINUE TO TRY TO GET IN TOUCH WITH HER. PATIENT RESTING QUIETLY LISTENING TO TV, NO C/O OR REQUESTS VOICED AT THIS TIME. CALL LIGHT WITHIN REACH. WILL CONTINUE TO MONITOR.
--- NOTE | 2021-06-10 23:20 | NUR ---
RECIEVED MESSAGE FROM DR. ALMBERT TO RESTART ALL OF PATIENTS HOME MEDS AND TO PLEASE DO FSBS [facility] WITH REGULAR INSULIN SLIDING SCALE COVERAGE.
[2021-06-11] VITALS (8 sets, daily range): BP systolic 162–202; BP diastolic 72–98; TEMP 97.4–97.9; Ht 175.3 cm; Wt 89.6 kg
--- NOTE | 2021-06-11 00:30 | NUR ---
PATIENTS FSBS CHECKED AND READS 411, DR. LAMBERT ORDERS ARE TO GIVE 10 UNITS OF REGULAR INSULIN SQ. WILL RE CHECK FSBS IN ONE HOUR.
--- NOTE | 2021-06-11 02:00 | NUR ---
PATIENTS FSBS NOW READING 430, PATIENT RESTING QUIETLY WITH NO COMPLAINTS. PATIENT HASNT BEEM EATING OR DRINKING IN LAST COUPLE OF HOURS. CALLED DR. LAMBERT TO REPORT GLUCOSE LEVEL AND ORDERS WERE GIVEN TO GIVE PATIENT ANOTHER 10 UNITS OF REGULAR INSULIN SQ. WILL RECHECK IN ABOUT AN HOUR. NO ACUTE DISTRESS NOTED AND PATIENT DENIES ANY COMPLAINTS AT THIS TIME.
--- NOTE | 2021-06-11 03:40 | NUR ---
PATIENTS FSBS RECHECKED AT THIS TIME AND READS 347, PATIENT RESTING QUIETLY WITHOUT ANY COMPLAINTS. NO ACUTE DISTRESS AT THIS TIME. PATIENT STATES HE NORMALLY KNOWS WHEN HIS GLUCOSE IS LOW. I TOLD HIM TO PLEASE ALERT STAFF IF HE EXPERIENCES ANY SIGNS OR SYMPTOMS OF HYPOGLYCEMIA AND PATIENT VERBALIZES UNDERSTANDING AND STATES, "I WILL". CALL LIGHT WITHIN REACH AND WILL CONTINUE TO MONITOR.
[2021-06-11 08:35] LABS: PLATELET COUNT 179 K/uL (142-355)
[2021-06-11 08:44] LABS: POTASSIUM 3.9 mmol/L (3.6-5.2)
== END 2021-06-11 13:20 | disposition home or self-care (01) ==
LOC: MED/SURG 17:12
PROVIDERS: ADMIT Family Medicine; ATTEND Family Medicine
PROC: 30233N1 Transfusion of Nonautologous Red Blood Cells into Peripheral Vein, Percutaneous Approach (ICD-10-PCS; principal; 2021-06-11)
DX: D62 Acute posthemorrhagic anemia (principal); R42 Dizziness and giddiness; E11.9 Type 2 diabetes mellitus without complications; I12.0 Hypertensive chronic kidney disease with stage 5 chronic kidney disease or end stage renal disease; E11.22 Type 2 diabetes mellitus with diabetic chronic kidney disease; E11.65 Type 2 diabetes mellitus with hyperglycemia; N18.6 End stage renal disease
CPT/HCPCS: 36415; 36430; 80053; 82948; 83735; 84100; 85027; 86850; 86900; 86901; 86922; 87635; 96365; 96366; 96372; 99220; G0378; G0379; J1815; P9016; U0003

== ENCOUNTER 2021-06-16 08:49 | Outpatient (CLI) | payer OTHER ==
[~2021-06-16 08:49] MED LIST changes: +ANTIHISTAMIN25 MG PO; +ASPIRIN ADULT L81 M1 PO; +FINASTERIDE5 MG PO; +KP FOLIC ACID1 MG PO; +LABETALOL HYDR200 MG PO; +TAMSULOSIN HYD0.4 MG PO; +VALSARTAN320 MG PO
[2021-06-16 09:29] LABS: PLATELET COUNT 183 K/uL (142-355)
[2021-06-16 10:19] LABS: POTASSIUM 4.1 mmol/L (3.6-5.2)
== END 2021-06-16 21:41 | disposition home or self-care (01) ==
LOC: LABW 08:49
PROVIDERS: ATTEND Internal Medicine Medical Oncology
DX: D47.2 Monoclonal gammopathy (principal); N18.30 Chronic kidney disease, stage 3 unspecified; D64.9 Anemia, unspecified
CPT/HCPCS: 36415; 80053; 82728; 83540; 83550; 83883; 84165; 85027

== ENCOUNTER 2021-07-21 07:54 | Outpatient (CLI) | payer OTHER | END 2021-07-21 22:07 | disposition home or self-care (01) | LOC: US 07:54 | PROVIDERS: ATTEND Specialist | DX: I77.89 Other specified disorders of arteries and arterioles (principal) ==

== ENCOUNTER 2021-08-11 09:30 | Outpatient (CLI) | payer OTHER ==
[2021-08-11 10:12] LABS: PLATELET COUNT 191 K/uL (142-355)
[2021-08-11 10:17] LABS: POTASSIUM 4.6 mmol/L (3.6-5.2)
== END 2021-08-11 21:06 | disposition home or self-care (01) ==
LOC: LABW 09:30
PROVIDERS: ATTEND Nurse Practitioner Family
DX: D47.2 Monoclonal gammopathy (principal); N18.30 Chronic kidney disease, stage 3 unspecified; N18.9 Chronic kidney disease, unspecified
CPT/HCPCS: 36415; 80053; 82607; 82728; 82746; 83540; 83550; 85027; 85044

== ENCOUNTER 2021-09-29 09:22 | Outpatient (CLI) | payer OTHER ==
[2021-09-29 09:44] LABS: PLATELET COUNT 202 K/uL (142-355)
== END 2021-09-29 19:38 | disposition home or self-care (01) ==
LOC: LABW 09:22
PROVIDERS: ATTEND Internal Medicine Medical Oncology
DX: D47.2 Monoclonal gammopathy (principal); N18.30 Chronic kidney disease, stage 3 unspecified; Z79.899 Other long term (current) drug therapy; E11.9 Type 2 diabetes mellitus without complications; E03.8 Other specified hypothyroidism; E78.2 Mixed hyperlipidemia; E66.9 Obesity, unspecified; I12.9 Hypertensive chronic kidney disease with stage 1 through stage 4 chronic kidney disease, or unspecified chronic kidney disease
CPT/HCPCS: 36415; 80053; 83883; 84165; 84439; 84443; 85027; 86334

== ENCOUNTER 2021-11-03 15:36 | Observation (INO) | payer OTHER ==
[~2021-11-03] VITALS: Ht 175.3 cm; Wt 88.5 kg
[2021-11-03] VITALS (15 sets, daily range): BP systolic 132–205; BP diastolic 57–109; TEMP 98.1–98.5; Ht 175.3 cm; Wt 88.5 kg
[2021-11-03 16:43] LABS: PLATELET COUNT 223 K/uL (142-355)
[2021-11-03 16:54] LABS: POTASSIUM 4.5 mmol/L (3.6-5.2)
[2021-11-03 19:36] LABS: POTASSIUM 4.4 mmol/L (3.6-5.2)
[2021-11-03 23:55] LABS: POTASSIUM 3.7 mmol/L (3.6-5.2)
[2021-11-04] VITALS (7 sets, daily range): BP systolic 123–147; BP diastolic 73–80; TEMP 98.4–99
[2021-11-04 04:17] LABS: POTASSIUM 3.7 mmol/L (3.6-5.2)
[2021-11-04 07:35] LABS: POTASSIUM 3.4 mmol/L (3.6-5.2)
== END 2021-11-04 16:40 | disposition home or self-care (01) ==
LOC: ED 15:36 → ICU 20:15 → MED/SURG 11-04 09:03
PROVIDERS: ADMIT Emergency Medicine Emergency Medical Services; ATTEND Family Medicine
DX: E11.22 Type 2 diabetes mellitus with diabetic chronic kidney disease (principal); E11.65 Type 2 diabetes mellitus with hyperglycemia; I12.0 Hypertensive chronic kidney disease with stage 5 chronic kidney disease or end stage renal disease; N18.6 End stage renal disease; H54.8 Legal blindness, as defined in USA; Z91.15 Patient's noncompliance with renal dialysis; Z99.2 Dependence on renal dialysis; R51.9 Headache, unspecified
CPT/HCPCS: 36415; 36600; 80048; 80053; 81000; 81002; 82805; 83735; 84100; 84484; 85027; 85610; 87635; 93005; 96360; 96365; 96375; 99220; 99285; G0378; J1815; J3490; U0003

== ENCOUNTER 2022-02-05 08:59 | Outpatient (CLI) | payer OTHER ==
[~2022-02-05] VITALS: Ht 182.9 cm; Wt 90.7 kg
== END 2022-02-05 20:03 | disposition home or self-care (01) ==
LOC: NM 08:59
PROVIDERS: ATTEND Specialist
DX: Z01.810 Encounter for preprocedural cardiovascular examination (principal); Z95.5 Presence of coronary angioplasty implant and graft; I25.10 Atherosclerotic heart disease of native coronary artery without angina pectoris; E11.9 Type 2 diabetes mellitus without complications
CPT/HCPCS: A9500; J2785

== ENCOUNTER 2022-03-21 12:28 | Outpatient (CLI) | payer OTHER ==
[2022-03-21 12:43] LABS: PLATELET COUNT 164 K/uL (142-355)
[2022-03-21 12:55] LABS: POTASSIUM 4.1 mmol/L (3.6-5.2)
== END 2022-03-21 19:30 | disposition home or self-care (01) ==
LOC: LABW 12:28
PROVIDERS: ATTEND Specialist
DX: R94.39 Abnormal result of other cardiovascular function study (principal)
CPT/HCPCS: 36415; 80048; 85027

== ENCOUNTER 2022-04-27 08:45 | Outpatient (CLI) | payer OTHER | END 2022-04-27 18:45 | disposition home or self-care (01) | LOC: CT 08:45 | PROVIDERS: ATTEND Nurse Practitioner Family | DX: R10.84 Generalized abdominal pain (principal) ==

== ENCOUNTER 2022-05-07 22:36 | Emergency (ER) | payer OTHER ==
[~2022-05-07] VITALS: Ht 172.7 cm; Wt 83.9 kg
[2022-05-07 23:39] LABS: PLATELET COUNT 127 K/uL (142-355)
[2022-05-07 23:59] LABS: POTASSIUM 3.7 mmol/L (3.6-5.2)
[2022-05-08 02:33] LABS: PARTIAL THROMBOPLASTIN TIME 26.3 SECONDS (24.5-33.6)
[2022-05-08 04:15] VITALS: BP 197/81; TEMP 98.5
== END 2022-05-08 04:15 | disposition home or self-care (01) ==
LOC: ED 22:36
PROVIDERS: Emergency Medicine
DX: J18.9 Pneumonia, unspecified organism (principal); Z20.822 Contact with and (suspected) exposure to COVID-19
CPT/HCPCS: 36415; 80053; 84484; 85027; 85610; 85730; 87040; 87077; 87185; 87186; 87205; 87635; 93005; 96374; 96375; 99284; J1956; J2270; J2405; J3490; U0003

== ENCOUNTER 2022-07-06 09:56 | Outpatient (CLI) | payer OTHER ==
[2022-07-06 10:22] LABS: PLATELET COUNT 235 K/uL (142-355)
[2022-07-06 10:41] LABS: POTASSIUM 4.5 mmol/L (3.6-5.2)
== END 2022-07-06 19:50 | disposition home or self-care (01) ==
LOC: LABW 09:56
PROVIDERS: ATTEND Student in an Organized Health Care Education/Training Program
DX: Z94.0 Kidney transplant status (principal); Z79.899 Other long term (current) drug therapy; E83.42 Hypomagnesemia; E83.39 Other disorders of phosphorus metabolism; N39.0 Urinary tract infection, site not specified
CPT/HCPCS: 36415; 80053; 80197; 81002; 83735; 84100; 85027; 87088

== ENCOUNTER 2022-07-20 08:58 | Outpatient (CLI) | payer OTHER | END 2022-07-20 19:21 | disposition home or self-care (01) | LOC: LABW 08:58 | PROVIDERS: ATTEND Student in an Organized Health Care Education/Training Program | DX: Z94.0 Kidney transplant status (principal); Z79.899 Other long term (current) drug therapy | CPT/HCPCS: 36415; 80197 ==

== ENCOUNTER 2022-08-06 10:32 | Outpatient (CLI) | payer OTHER ==
[2022-08-06 11:27] LABS: PLATELET COUNT 180 K/uL (142-355)
[2022-08-06 11:33] LABS: POTASSIUM 3.5 mmol/L (3.6-5.2)
== END 2022-08-06 19:24 | disposition home or self-care (01) ==
LOC: LAB 10:32
PROVIDERS: ATTEND Student in an Organized Health Care Education/Training Program
DX: E83.42 Hypomagnesemia (principal); E83.39 Other disorders of phosphorus metabolism; Z94.0 Kidney transplant status; Z79.899 Other long term (current) drug therapy
CPT/HCPCS: 80053; 80197; 82248; 83735; 84100; 85027

== ENCOUNTER 2022-08-10 14:51 | Emergency (ER) | payer OTHER ==
[~2022-08-10] VITALS: Ht 172.7 cm; Wt 77.1 kg
[2022-08-10 15:36] LABS: PLATELET COUNT 146 K/uL (142-355)
[2022-08-10 15:42] LABS: POTASSIUM 3.4 mmol/L (3.6-5.2)
[2022-08-10] MEDS ORDERED: PREDNISONE5 MG PO (17:05)
[2022-08-10] MEDS ORDERED: TACROLIMUS1 MG PO ×2 (17:05→17:06)
[2022-08-10] MEDS ORDERED: AMLO2.5T PO (17:08)
[2022-08-10] MEDS ORDERED: MYCOPHENOLATE250 MG PO (17:08)
[2022-08-10] MEDS ORDERED: VALGANCICLOVIR450 MG PO (17:08)
[2022-08-10] MEDS ORDERED: PAIN RELIEF EX500 M1 PO (17:10)
[2022-08-10] MEDS ORDERED: 904272561 PO (17:14)
[2022-08-10] MEDS ORDERED: CLONIDINE HYDR0.1 M2 PO (17:16)
[2022-08-10] MEDS ORDERED: HYDRALAZINE HY100 MG PO (17:16)
[2022-08-10] MEDS ORDERED: CALCIUM500 M2 PO (17:17)
[2022-08-10 19:57] VITALS: BP 148/59; TEMP 98.7
== END 2022-08-10 19:57 | disposition home or self-care (01) ==
LOC: ED 14:57
PROVIDERS: Emergency Medicine Emergency Medical Services
DX: J02.0 Streptococcal pharyngitis (principal); Z94.0 Kidney transplant status; Z11.52 Encounter for screening for COVID-19
CPT/HCPCS: 36415; 80053; 81000; 83605; 83735; 84484; 85027; 87040; 87086; 87088; 87502; 87635; 87651; 93005; 96360; 96365; 96366; 99284; J1956; J2543; U0003

== ENCOUNTER 2022-11-24 10:11 | Outpatient (CLI) | payer OTHER ==
[~2022-11-24 10:11] MED LIST changes: +904272561 PO; +AMLO2.5T PO; +CALCIUM500 M2 PO; +CLONIDINE HYDR0.1 M2 PO; +HYDRALAZINE HY100 MG PO; +MYCOPHENOLATE250 MG PO; +PAIN RELIEF EX500 M1 PO; +PREDNISONE5 MG PO; +TACROLIMUS1 MG PO; +VALGANCICLOVIR450 MG PO
== END 2022-11-24 19:16 | disposition home or self-care (01) ==
LOC: LABW 10:11
PROVIDERS: ATTEND Internal Medicine Nephrology
DX: Z94.0 Kidney transplant status (principal); Z79.899 Other long term (current) drug therapy
CPT/HCPCS: 36415; 80076; 80197

== ENCOUNTER 2022-12-25 10:24 | Outpatient (CLI) | payer OTHER | END 2022-12-25 21:20 | disposition home or self-care (01) | LOC: LABW 10:24 | PROVIDERS: ATTEND Internal Medicine | DX: Z94.0 Kidney transplant status (principal); Z79.899 Other long term (current) drug therapy | CPT/HCPCS: 36415; 80076 ==

== ENCOUNTER 2023-02-08 11:35 | Outpatient (CLI) | payer OTHER ==
[2023-02-08 12:23] LABS: PLATELET COUNT 125 K/uL (142-355)
[2023-02-08 13:12] LABS: POTASSIUM 4.4 mmol/L (3.6-5.2)
== END 2023-02-08 20:22 | disposition home or self-care (01) ==
LOC: LABW 11:35
PROVIDERS: ATTEND Internal Medicine Nephrology
DX: Z94.0 Kidney transplant status (principal); Z79.899 Other long term (current) drug therapy; E55.9 Vitamin D deficiency, unspecified; D50.8 Other iron deficiency anemias
CPT/HCPCS: 36415; 80053; 80197; 81000; 82306; 82570; 82607; 82728; 83540; 83550; 83735; 83970; 84100; 84156; 85027; 87077; 87086; 87088; 87186

== ENCOUNTER 2023-02-12 12:45 | Outpatient (CLI) | payer OTHER ==
[~2023-02-12] VITALS: Ht 175.3 cm; Wt 74.8 kg
== END 2023-02-12 19:42 | disposition home or self-care (01) ==
LOC: INF 12:45
PROVIDERS: ATTEND Internal Medicine
DX: N39.0 Urinary tract infection, site not specified (principal)
CPT/HCPCS: 96365; J1335

== ENCOUNTER 2023-02-13 12:57 | Outpatient (CLI) | payer OTHER ==
[~2023-02-13] VITALS: Ht 175.3 cm; Wt 74.8 kg
== END 2023-02-13 19:08 | disposition home or self-care (01) ==
LOC: INF 12:57
PROVIDERS: ATTEND Internal Medicine
DX: N39.0 Urinary tract infection, site not specified (principal)
CPT/HCPCS: 96374; J1335

== ENCOUNTER 2023-02-14 12:29 | Outpatient (CLI) | payer OTHER ==
[~2023-02-14] VITALS: Ht 175.3 cm; Wt 74.8 kg
== END 2023-02-14 19:46 | disposition home or self-care (01) ==
LOC: INF 12:29
PROVIDERS: ATTEND Internal Medicine
DX: N39.0 Urinary tract infection, site not specified (principal)
CPT/HCPCS: 96365; J1335

== ENCOUNTER 2023-02-15 16:29 | Outpatient (CLI) | payer OTHER ==
[~2023-02-15] VITALS: Ht 175.3 cm; Wt 74.8 kg
[2023-02-15 16:44] VITALS: BP 122/68; TEMP 98.4
== END 2023-02-15 19:06 | disposition home or self-care (01) ==
LOC: INF 16:29
PROVIDERS: ATTEND Internal Medicine
DX: N39.0 Urinary tract infection, site not specified (principal)
CPT/HCPCS: 96365; J1335

== ENCOUNTER 2023-02-16 23:00 | Emergency (ER) | payer OTHER ==
[~2023-02-16] VITALS: Ht 175.3 cm; Wt 79.4 kg
[2023-02-16 23:00] VITALS: TEMP 98.2
[2023-02-17 00:35] VITALS: BP 121/70
== END 2023-02-17 00:35 | disposition home or self-care (01) ==
LOC: ED 23:00
DX: R05.8 Other specified cough (principal)
CPT/HCPCS: 99282

== ENCOUNTER 2023-02-19 10:52 | Outpatient (CLI) | payer OTHER | END 2023-02-19 19:17 | disposition home or self-care (01) | LOC: LABW 10:52 | PROVIDERS: ATTEND Internal Medicine Nephrology | DX: Z94.0 Kidney transplant status (principal); Z79.899 Other long term (current) drug therapy | CPT/HCPCS: 80197 ==

== ENCOUNTER 2023-02-25 10:37 | Outpatient (CLI) | payer OTHER | END 2023-02-25 17:00 | disposition home or self-care (01) | LOC: LABW 10:37 | PROVIDERS: ATTEND Internal Medicine | DX: Z94.0 Kidney transplant status (principal); Z79.899 Other long term (current) drug therapy | CPT/HCPCS: 36415; 80197 ==

== ENCOUNTER 2023-03-11 10:51 | Outpatient (CLI) | payer OTHER | END 2023-03-11 19:06 | disposition home or self-care (01) | LOC: LABW 10:51 | PROVIDERS: ATTEND Internal Medicine | DX: Z94.0 Kidney transplant status (principal); Z79.899 Other long term (current) drug therapy | CPT/HCPCS: 36415; 80197 ==

== ENCOUNTER 2023-03-22 11:43 | Outpatient (CLI) | payer OTHER | END 2023-03-22 20:42 | disposition home or self-care (01) | LOC: LABW 11:43 | PROVIDERS: ATTEND Internal Medicine Nephrology | DX: Z94.0 Kidney transplant status (principal); Z79.899 Other long term (current) drug therapy | CPT/HCPCS: 36415; 87497 ==

== ENCOUNTER 2023-03-29 10:09 | Outpatient (CLI) | payer OTHER | END 2023-03-29 19:03 | disposition home or self-care (01) | LOC: LABW 10:09 | PROVIDERS: ATTEND Internal Medicine Nephrology | DX: Z94.0 Kidney transplant status (principal); Z79.899 Other long term (current) drug therapy | CPT/HCPCS: 36415; 87497 ==

== ENCOUNTER 2023-04-06 11:28 | Outpatient (CLI) | payer OTHER | END 2023-04-06 21:13 | disposition home or self-care (01) | LOC: LABW 11:28 | PROVIDERS: ATTEND Internal Medicine Nephrology | DX: Z94.0 Kidney transplant status (principal); Z79.899 Other long term (current) drug therapy | CPT/HCPCS: 36415; 87497 ==

== ENCOUNTER 2023-04-12 11:28 | Outpatient (CLI) | payer OTHER | END 2023-04-12 19:24 | disposition home or self-care (01) | LOC: LABW 11:28 | PROVIDERS: ATTEND Internal Medicine Nephrology | DX: Z94.0 Kidney transplant status (principal); Z79.899 Other long term (current) drug therapy | CPT/HCPCS: 36415; 87497 ==

== ENCOUNTER 2023-04-26 10:42 | Outpatient (CLI) | payer OTHER | END 2023-04-26 18:57 | disposition home or self-care (01) | LOC: LABW 10:42 | PROVIDERS: ATTEND Internal Medicine Nephrology | DX: Z94.0 Kidney transplant status (principal); Z79.899 Other long term (current) drug therapy | CPT/HCPCS: 36415; 87497 ==

== ENCOUNTER 2023-05-24 11:57 | Outpatient (CLI) | payer OTHER | END 2023-05-24 19:11 | disposition home or self-care (01) | LOC: LABW 11:57 | PROVIDERS: ATTEND Internal Medicine | DX: Z94.0 Kidney transplant status (principal); Z79.899 Other long term (current) drug therapy | CPT/HCPCS: 36415; 87497 ==

== ENCOUNTER 2023-08-17 10:07 | Outpatient (CLI) | payer OTHER | END 2023-08-17 18:53 | disposition home or self-care (01) | LOC: LABW 10:07 | PROVIDERS: ATTEND Internal Medicine | DX: Z94.0 Kidney transplant status (principal); Z79.899 Other long term (current) drug therapy | CPT/HCPCS: 36415; 80197; 87497 ==

== ENCOUNTER 2023-08-19 14:13 | Outpatient (CLI) | payer OTHER | END 2023-08-19 20:00 | disposition home or self-care (01) | LOC: LAB 14:13 | PROVIDERS: ATTEND Internal Medicine | DX: Z94.0 Kidney transplant status (principal); Z79.899 Other long term (current) drug therapy | CPT/HCPCS: 36415; 87497 ==